=== PATIENT | female | born 1970 | race Caucasian/White ===

== ENCOUNTER 2016-09-07 22:51 | Emergency (ER) | payer OTHER ==
[~2016-09-07] VITALS: Ht 160 cm; Wt 72.5 kg
[~2016-09-07 22:51] MED LIST: CEPH-443 PO; HC1C30 TOP; HYDR-3011 PO
[2016-09-07 23:01] VITALS: Ht 160 cm; Wt 72.5 kg
--- NOTE | 2016-09-08 00:01 | ERA ---
ER Documentation Chief Complaint Date/Time DATE: 09/08/16 TIME: 00:00 Chief Complaint Neck and left arm pain HPI The patient is a 46-year-old female, presenting to the ER because of neck pain that associated with left arm pain intermittently for more than 2 weeks. The left arm pain is worse with neck movement. She has similar symptoms previously. She denies fever, chills, neck pain, chest pain, dyspnea, abdominal pain, vomiting, dysuria, diarrhea. She complains of lower extremity rash for the last 2 weeks that is pleuritic and she has similar rashes previously. She does not smoke, drink Past medical history: None Past surgical history: Appendectomy, hysterectomy, cholecystectomy ROS All systems reviewed and are negative except as per history of present illness. Medications Home Meds Active Scripts Triamcinolone Acetonide* (Kenalog*) 0.1%-15GM Oint, 1 APPLIC TOP BID for 10 Days , #1 EA Prov:MEREDITH PERAZA MD 09/08/16 Ibuprofen* (Motrin*) 600 Mg Tab, 600 MG PO Q6H Y for PAIN AND OR ELEVATED TEMP, #20 TAB Prov:MEREDITH PERAZA MD 09/08/16 Clindamycin Hcl* (Clindamycin Hcl*) 300 Mg Capsule, 300 MG PO Q6 for 10 Days, CAP Prov:MEREDITH PERAZA MD 09/08/16 Cephalexin* (Keflex*) 500 Mg Capsule, 500 MG PO Q6 for 7 Days, CAP Prov:JOHN SANDERS NP 12/22/14 Hydroxyzine Hcl* (Hydroxyzine Hcl*) 25 Mg Tablet, 25 MG PO Q8H Y for ITCHING, # 30 TAB Prov:JOHN SANDERS NP 12/22/14 Hydrocortisone* Topical (Hydrocortisone* Topical) 1%-28.35 Gm Cream..g., 1 APPLIC TOP Q12 for ITCHING, #1 TUB Prov:JOHN SANDERS NP 12/22/14 Allergies Allergies: Coded Allergies: No Known Allergy (Unverified , 02/06/13) PMhx/Soc History of Surgery: Yes (appendectomy; knee surgery; hysterrectomy; cyst removal) Anesthesia Reaction: No Hx Neurological Disorder: No Hx Respiratory Disorders: No Hx Cardiac Disorders: No Hx Psychiatric Problems: No Hx Miscellaneous Medical Probl: Yes (back pain) Hx Alcohol Use: No Hx Substance Use: No Hx Tobacco Use: No Physical Exam Vitals Vital Signs Date Time Temp Pulse Resp B/P Pulse Ox O2 Delivery O2 Flow Rate FiO2 09/07/16 23:01 98.3 106 20 141/75 98 Physical Exam Const: No acute distress. Head: Atraumatic. Eyes: Normal Conjunctiva. ENT: Normal External Ears, Nose and Mouth. Neck: Full range of motion. No meningismus. No posterior cervical tenderness, no crepitus Resp: Clear to auscultation bilaterally. Cardio: Regular rate and rhythm, no murmurs. Abd: Soft, non distended, normal bowel sounds, non tender. Skin: No petechiae or rashes. Back: No midline or flank tenderness. Ext: No cyanosis, or edema. Left arm is without any tenderness, erythema, skin rash. Bilateral lower extremity with minimal erythematous maculopapular rash, no vesicle, no petechia Neur: Awake and alert. No focal deficit Psych: Normal Mood and Affect. Procedures/MDM EKG: Read by emergency physician Rate/Rhythm: Normal Sinus Rhythm 98 beats/min QRS, ST, T-waves: No ST elevation, no T inversion Impression: Normal EKG MEDICAL MAKING DECISION: The patient is a 46-year-old female, presenting with acute on chronic cervical radiculopathy, acute bilateral lower extremity cellulitis. The differential diagnoses considered include but are not limited to acute coronary syndrome, acute myocardial infarction, pericarditis, pulmonary embolism, aortic dissection, pneumonia, pleural effusion, pneumothorax , GERD, chest wall pain. Departure Diagnosis: Primary Impression: Radiculopathy of cervical spine Additional Impression: Rash and other nonspecific skin eruption Condition: Good Comments She was discharged with Motrin, Kenalog cream, clindamycin I discussed the findings with the patient. I advised the patient to follow-up with the primary physician in about 1-2 days, sooner if needed and return if any concern. She was advised that she would need MRI of the neck for further evaluation The patient's blood pressure was elevated (>120/80) but appears stable without evidence of hypertension emergency or urgency. The patient was counseled about the risks of hypertension and urged to pursue outpatient monitoring and therapy within a week with their primary care physician. MEREDITH PERAZA MD Sep 08, 2016 00:00
[2016-09-08] MEDS ORDERED: KEN1O TOP (00:20)
[2016-09-08] MEDS ORDERED: IBUP-1542 PO (00:20)
[2016-09-08] MEDS ORDERED: CLIN-73 PO (00:20)
[2016-09-08 00:33] VITALS: BP 152/83; PULSE 78; RESP 16; TEMP 97.4
== END 2016-09-08 00:34 | disposition home or self-care (01) ==
LOC: E/R 22:51
DX: M54.12 Radiculopathy, cervical region (principal); R21 Rash and other nonspecific skin eruption; F17.210 Nicotine dependence, cigarettes, uncomplicated

== ENCOUNTER 2018-07-28 21:55 | Emergency (ER) | payer OTHER ==
[~2018-07-28] VITALS: Ht 165.1 cm; Wt 75.5 kg
[~2018-07-28 21:55] MED LIST changes: +CLIN300C10 PO; -HYDR-3011 PO; +HYDR-843 PO; +IBUP-1542 PO; +KEN1O TOP
[2018-07-28 21:58] VITALS: Ht 165.1 cm; Wt 75.5 kg
[2018-07-28] MEDS ORDERED: SOD CHLORIDE 0.9% 1,000 ML IV STA (23:23)
--- NOTE | 2018-07-29 00:55 | ERD ---
ER Documentation Chief Complaint Chief Complaint "swelling of lower body", R hand numb, knee pain s/p fall 2 mo ago HPI This is a pleasant 48-year-old female who is otherwise healthy. She is here complaining of multiple complaints including right knee pain and right hand pain with paresthesias in her right hand. This began when she fell onto her hands and knees over 2 months ago. No new trauma since. She is also complaining of swelling to her bilateral lower extremities. No chest pain palpitations or shortness of breath. No fever cough or recent illness. ROS All systems reviewed and are negative except as per history of present illness. Medications Home Meds Active Scripts Triamcinolone Acetonide* (Kenalog*) 0.1%-15GM Oint, 1 APPLIC TOP BID for 10 Days, #1 EA Prov:MEREDITH PERAZA MD 09/08/16 Ibuprofen* (Motrin*) 600 Mg Tab, 600 MG PO Q6H PRN for PAIN AND OR ELEVATED TEMP, #20 TAB Prov:MEREDITH PERAZA MD 09/08/16 Clindamycin Hcl* (Clindamycin Hcl*) 300 Mg Capsule, 300 MG PO Q6 for 10 Days, CAP Prov:MEREDITH PERAZA MD 09/08/16 Cephalexin* (Keflex*) 500 Mg Capsule, 500 MG PO Q6 for 7 Days, CAP Prov:JOHN SANDERS NP 12/22/14 Hydroxyzine Hcl* (Hydroxyzine Hcl*) 25 Mg Tablet, 25 MG PO Q8H PRN for ITCHING, #30 TAB Prov:JOHN SANDERS NP 12/22/14 Hydrocortisone* Topical (Hydrocortisone* Topical) 1%-28.35 Gm Cream..g., 1 APPLIC TOP Q12 for ITCHING, #1 TUB Prov:JOHN SANDERS NP 12/22/14 Allergies Allergies: Coded Allergies: No Known Allergy (Unverified , 02/06/13) PMhx/Soc History of Surgery: Yes (partial hysterectomy, left knee, appendectomy) Anesthesia Reaction: No Hx Neurological Disorder: No Hx Respiratory Disorders: No Hx Cardiac Disorders: No Hx Psychiatric Problems: No Hx Miscellaneous Medical Probl: Yes (back pain) Hx Alcohol Use: No Hx Substance Use: No Hx Tobacco Use: No Smoking Status: Current some day smoker FmHx Family History: No diabetes Physical Exam Vitals Vital Signs Date Temp Pulse Resp B/P (MAP) Pulse Ox O2 O2 Flow FiO2 Time Delivery Rate 07/28/18 97.8 121 16 143/87 98 21:58 (105) Physical Exam INITIAL VITAL SIGNS: Reviewed by me GENERAL: Awake, alert and oriented x 4, well appearing, nontoxic, speaking in full sentences. No acute distress HEAD: Atraumatic NECK: Supple. No masses. Full range of motion. No meningismus. No midline tenderness. CV: Regular rate and rhythm. No murmurs, rubs, or gallops. ABDOMEN: Soft, non-distended. Nontender. Negative [place]. Negative [place] point tenderness. No CVA tenderness bilaterally. No guarding. No rebound. EXTREMITIES: Minimal bilateral lower extremity edema. Nontender knee with full range of motion, no bony abnormalities, sensation to light touch is intact. Right hand health safety manager strength 5 out of 5, nontender throughout, radial pulse 2+ BACK: No midline tenderness to palpation. No step-offs. SKIN: Warm and dry. No rash or petechiae. NEUROLOGIC: Normal mental status and speech. Face is symmetric. Moves all extremities equally. Motor and sensory distally intact. Normal coordination. Ambulates with a strong steady gait. Result Diagram: 07/28/18235107/28/182351 Results 24 hrs Laboratory Tests Test 07/28/18 23:49 07/28/18 23:52 POC Beta HCG, Qualitative NEGATIVE White Blood Count 8.9 10^3/ul Red Blood Count 4.60 10^6/ul Hemoglobin 14.0 g/dl Hematocrit 40.9 % Mean Corpuscular Volume 88.9 fl Mean Corpuscular Hemoglobin 30.4 pg Mean Corpuscular Hemoglobin Concent 34.2 g/dl Red Cell Distribution Width 12.7 % Platelet Count 446 10^3/UL Mean Platelet Volume 9.7 fl Immature Granulocytes % 0.400 % Neutrophils % 52.0 % Lymphocytes % 38.4 % Monocytes % 6.0 % Eosinophils % 2.6 % Basophils % 0.6 % Nucleated Red Blood Cells % 0.0 /100WBC Immature Granulocytes # 0.040 10^3/ul Neutrophils # 4.6 10^3/ul Lymphocytes # 3.4 10^3/ul Monocytes # 0.5 10^3/ul Eosinophils # 0.2 10^3/ul Basophils # 0.1 10^3/ul Nucleated Red Blood Cells # 0.0 10^3/ul Sodium Level 144 mmol/L Potassium Level 4.5 mmol/L Chloride Level 104 mmol/L Carbon Dioxide Level 28 mmol/L Anion Gap 12 Blood Urea Nitrogen 13 mg/dl Creatinine 0.76 mg/dl Est Glomerular Filtrat Rate mL/min > 60 mL/min Glucose Level 101 mg/dl Calcium Level 9.6 mg/dl Troponin I < 0.012 ng/ml B-Type Natriuretic Peptide 35 PG/ML Current Medications Medications Dose Sig/Flor Start Time Status Last (Trade) Ordered Route PRN Stop Time Admin Dose Reason Admin Sodium 1,000 ml @ Q1H STAT 07/28/18 DC 07/29/18 Chloride 1,000 mls/hr IV 23:23 00:02 07/29/18 00:22 Procedures/MDM Patient is here with knee and hand pain as well as paresthesias in her right hand. Also complaining of bilateral lower extremity edema which is minimal at this time. She has no chest pain shortness of breath or palpitations. EKG is normal sinus rhythm. Laboratory analysis shows no evidence of acute emergent abnormality. No evidence of significant leukocytosis suggesting systemic infection or severe anemia. No evidence of acute renal or liver failure, no evidence of severe alkalosis or acidosis chest x-ray also negative. She was given copies of everything so she can follow with primary care. Low suspicion for head or knee fracture so no imaging ordered. Patient counseled regarding my diagnostic impression and care plan. Prior to discharge all questions answered. Pt agrees with treatment plan and understands strict return precautions. Pt is instructed to follow up with primary care provider within 24-48 hours. Precautionary instructions provided including instructions to return to the ER if not improving or for any worsening or changing symptoms or concerns. Departure Diagnosis: Primary Impression: Paresthesia Additional Impression: Knee pain Condition: Stable Patient Instructions: Knee Pain, Uncertain Cause, Paraesthesias Additional Instructions: Call your primary care doctor TOMORROW for an appointment during the next 1-2 days.See the doctor sooner or return here if your condition worsens before your appointment time. SUDHA HINOJOSA PA-C Jul 29, 2018 00:55
[2018-07-29 01:04] VITALS: BP 136/88; PULSE 75; RESP 19
== END 2018-07-29 01:20 | disposition home or self-care (01) ==
LOC: FTE 21:55
DX: R20.2 Paresthesia of skin (principal); F17.210 Nicotine dependence, cigarettes, uncomplicated; R07.9 Chest pain, unspecified
CPT/HCPCS: 36415; 71045; 80048; 81025; 83880; 84484; 85025; 93005; 96360; J7030; Z7502